=== PATIENT | male | born 1990 | race Caucasian/White ===

== ENCOUNTER 2016-09-22 21:55 | Observation (INO) | payer OTHER ==
[~2016-09-22] VITALS: Ht 180.3 cm; Wt 86.5 kg
[2016-09-22] MEDS ORDERED: SODIUM CHLORIDE 0.9% 1000ML 1,000 ML IV STA ×2 (22:10)
[2016-09-22] MEDS ORDERED: FENTANYL CITRATE INJ 50 MCG/1 ML 2 ML VIAL IV STA ×2 (22:10→22:50)
[2016-09-22] MEDS ORDERED: OPTIRAY 320 IV PRN (22:15)
[2016-09-22] MEDS ORDERED: ONDANSETRON INJ 2 MG/ML 2 ML VIAL ONE (22:19)
[2016-09-22] MEDS ORDERED: PATIENT'S ALLERGY INFO NEEDS ENTERED STA (22:28)
[2016-09-22 22:32] LABS: BASO % 0.2 %; BASO ABS # 0.02 K/uL (0-0.2); COMPLETE YES; EOS % 3.1 %; HEMATOCRIT 42.1 % (42-52); IG% 0.2 %; LYMPH % 21.6 %; LYMPH ABS # 1.92 K/uL (1.2-3.4); MEAN CELL VOLUME 88.3 fL (80-100); MEAN CORPUSCULAR HEMOGLOBIN 31.2 pg (25-34); MEAN CORPUSCULAR HGB CONC 35.4 g/dl (32-36); MEAN PLATELET VOLUME 10.6 fL (7.4-10.4); MONO % 7.9 %; PLATELET COUNT 223 K/uL (130-400); RED BLOOD COUNT 4.77 M/uL (4.7-6.1)
[2016-09-22 22:33] LABS: ISTAT CREATININE 1.1 mg/dl (0.6-1.3); ISTAT HEMOGLOBIN 14.6 g/dl (14.0-18.0); ISTAT IONIZED CALCIUM 1.2 mmol/l (1.12-1.32)
[2016-09-22 22:51] LABS: ALT/SGPT 27 U/L (12-78); BLOOD UREA NITROGEN 21 mg/dl (7-18); BUN/CREATININE RATIO 19.1 (10-20); CALCIUM 9.4 mg/dl (8.5-10.1); CARBON DIOXIDE 26 mmol/L (21-32); CHLORIDE 106 mmol/L (98-107); GLUCOSE 99 mg/dl (70-99); MAGNESIUM 2.1 mg/dl (1.8-2.4); POTASSIUM 3.9 mmol/L (3.5-5.1); SODIUM 138 mmol/L (136-145)
[2016-09-22] MEDS ORDERED: IBUP-1050 PO (22:58)
[2016-09-22] MEDS ORDERED: PANTOprazole INJ 80 MG in DEXTROSE 5% 100ML IV SCH (23:00)
--- NOTE | 2016-09-22 23:00 | DIAGNOSTIC IMAGING REPORT ---
CHEST , ABDOMEN, AND PELVIS CTA for AORTIC DISSECTION CT DOSE: 1112.21 mGy.cm HISTORY: Atypical chest pain. TECHNIQUE: Multiaxial CT images of the chest, abdomen, and pelvis were performed both before and after the intravenous administration of contrast to evaluate the aorta. Maximal intensity projection images were also obtained. A dose lowering technique was utilized adhering to the principles of ALARA. COMPARISON STUDY: None. FINDINGS: Noncontrast imaging shows no evidence for an intramural hematoma within the thoracic aorta. Mild motion artifact within the ascending thoracic aorta. However, the aorta appears to be normal in course and caliber with no evidence for dissection. The heart is normal in size. The central pulmonary arteries are patent. No pleural or pericardial effusions. No mediastinal or hilar lymphadenopathy. No fractures within the visualized osseous structures. No pneumothorax. The central airways are patent. Mild air trapping at the left lung base. No focal lung consolidations. The renal, mesenteric, and iliac arteries are widely patent. 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 The spleen, adrenal glands, pancreas, kidneys, and gallbladder are unremarkable. Mild hepatic steatosis. No retroperitoneal lymphadenopathy. Normal bladder. No bowel wall thickening or obstruction. Normal appendix. IMPRESSION: 1. No evidence for aortic dissection. 2. 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 3. No bowel wall thickening or obstruction. 4. Mild hepatic steatosis. Electronically signed by: Demarco Matt M.D. 09/22/2016 10:58 PM Dictated Date/Time: 09/22/2016 10:45 PM
[2016-09-22 23:04] LABS: ALKALINE PHOSPHATASE 60 U/L (45-117); AST/SGOT 13 U/L (15-37); THYROID STIMULATING HORMONE 0.936 uIu/ml (0.300-4.500)
[2016-09-22] MEDS ORDERED: PANTOprazole INJ 40 MG in DEXTROSE 5% 100ML IV SCH (23:15)
[2016-09-22 23:18] LABS: INR 1.1 (0.9-1.1); PROTHROMBIN TIME (PATIENT) 11.6 SECONDS (9.0-12.0)
[2016-09-22 23:22] LABS: ACETAMINOPHEN 5 ug/ml (10-30)
[2016-09-22] MEDS ORDERED: MoRPHine SULFATE 4 MG/ML 1 ML CARP\\VIAL IV STA (23:47)
--- NOTE | 2016-09-23 01:03 | EMERGENCY ROOM VISIT NOTE ---
History First contact with patient: 22:01 Chief Complaint: CARDIAC ASSESSMENT Stated Complaint: TROUBLE BREATHING, CHEST PAINS, BACK PAIN Nursing Triage Summary: Pt was out walking at farm show earlier with father, came home and started to c/o back pain. Went to dinner and afterwards c/o severe abdominal/chest pain along with pain in the back. Pt became SOB and diaphoretic. Pt in severe pain mid upper abdomen. History of Present Illness The patient is a 25 year old male who presents to the Emergency Room with complaints of severe back pain that started at 6 PM at around 8 PM developed severe chest pain with source of breath nausea and diaphoresis. Pain currently 10 out of 10. Nothing makes it better or worse. No history similar symptoms in the past. 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 Patient states he has been taking a lot more Motrin and Tylenol lately. No history GI bleed in the past. No endoscopy in the past. No black stool. Patient states occasionally he has blood in his stool but none recently. Patient states before playing baseball and he takes several tablets of Motrin and/or Tylenol in order to get to the game. He is unsure the exact amounts. Patient denies fevers, vomiting, diarrhea, black stool, bloody stool, numbness, tingling, weakness. No endoscopy or colonoscopy in the past. No family history GI bleeding. No family history of heart disease or aneurysms. Patient adamantly denies any alcohol, [id number] muscle enhancement, steroids, supplements, drug use. Review of Systems See HPI for pertinent positives & negatives. A total of 10 systems reviewed and were otherwise negative. Past Medical/Surgical History Orthopedic surgery Social History Smoking Status: Never Smoker Smokeless Tobacco Use: No Alcohol Use: none Drug Use: none Marital Status: single Occupation Status: employed Current/Historical Medications Scheduled Ibuprofen (Advil), 400 MG PO PRN UD Physical Exam Vital Signs Date Time Temp Pulse Resp B/P (MAP) Pulse Ox O2 Delivery O2 Flow Rate FiO2 09/23/16 00:19 39 09/22/16 23:16 44 18 136/87 100 09/22/16 22:18 Room Air 09/22/16 22:18 Room Air 09/22/16 22:18 Room Air 09/22/16 22:16 53 09/22/16 22:13 54 09/22/16 21:57 36.5 51 16 139/82 100 Room Air Physical Exam VITALS: Vitals are noted on the nurse's note and reviewed by myself. Vital signs s CARDIAC: No chest pain, sweating, shortness of breath, leg swelling, or irregular heart beat.. GENERAL: White male pale and diaphoretic in acute distress, well-developed well- nourished. SKIN: The skin was without rashes, erythema, edema, or bruising. There is no tenting of the skin. Capillary reflex less than 2 seconds. HEAD: Normocephalic atraumatic. EARS: External auditory canals clear, tympanic membranes pearly edmond without erythema or effusion bilaterally. EYES: Pupils equal round and reactive to light and accommodation. Conjunctivae without injection, sclerae without icterus. Extraocular movements intact. NOSE: Patent, turbinates without inflammation or discharge. MOUTH: Mucous membranes moist. Pharynx without erythema or exudate. Uvula midline. Airway patent. Tongue does not deviate. NECK: Supple without nuchal rigidity. No lymphadenopathy. No thyromegaly. Cervical spine is nontender. No JVD. HEART: Regular rate and rhythm without murmurs gallops or rubs. LUNGS: Clear to auscultation bilaterally without wheezes, rales or rhonchi. No dullness to percussion. No retractions or accessory muscle use. ABDOMEN: Positive bowel sounds x 4. Normal tympanic percussion. Soft, tender to palpation epigastric region, no CVA tenderness, without masses or organomegaly. Bull sign negative. No guarding or rebound tenderness. Rectal exam: Dark brown stool guaiac positive, him director present, no fissures or tears. MUSCULOSKELETAL: No muscle atrophy, erythema, or edema noted. NEURO: Patient was alert and oriented to person place and time. Normal sensation to light and sharp touch. No focal neurological deficits. Medical Decision & Procedures Laboratory Results 09/22/16 22:20 Red Blood Count 4.77, Mean Corpuscular Volume 88.3, Mean Corpuscular Hemoglobin 31.2, Mean Corpuscular Hemoglobin Concent 35.4, Mean Platelet Volume 10.6, Neutrophils (%) (Auto) 67.0, Lymphocytes (%) (Auto) 21.6, Monocytes (%) (Auto) 7.9, Eosinophils (%) (Auto) 3.1, Basophils (%) (Auto) 0.2, Neutrophils # (Auto) 5.96, Lymphocytes # (Auto) 1.92, Monocytes # (Auto) 0.70, Eosinophils # (Auto) 0.28, Basophils # (Auto) 0.02 09/22/16 22:20 Test 09/22/16 22:19 09/22/16 22:20 09/22/16 23:18 09/23/16 00:24 Bedside Troponin I < 0.030 ng/ml (0-0.045) White Blood Count 8.90 K/uL (4.8-10.8) Red Blood Count 4.77 M/uL (4.7-6.1) Hemoglobin 14.9 g/dL (14.0-18.0) Hematocrit 42.1 % (42-52) Mean Corpuscular Volume 88.3 fL (80-100) Mean Corpuscular Hemoglobin 31.2 pg (25-34) Mean Corpuscular Hemoglobin Concent 35.4 g/dl (32-36) Platelet Count 223 K/uL (130-400) Mean Platelet Volume 10.6 fL (7.4-10.4) Neutrophils (%) (Auto) 67.0 % Lymphocytes (%) (Auto) 21.6 % Monocytes (%) (Auto) 7.9 % Eosinophils (%) (Auto) 3.1 % Basophils (%) (Auto) 0.2 % Neutrophils # (Auto) 5.96 K/uL (1.4-6.5) Lymphocytes # (Auto) 1.92 K/uL (1.2-3.4) Monocytes # (Auto) 0.70 K/uL (0.11-0.59) Eosinophils # (Auto) 0.28 K/uL (0-0.5) Basophils # (Auto) 0.02 K/uL (0-0.2) Bedside Hemoglobin 14.6 g/dl (14.0-18.0) Bedside Hematocrit 43 % (42-52) RDW Standard Deviation 40.6 fL (36.4-46.3) RDW Coefficient of Variation 12.6 % (11.5-14.5) Immature Granulocyte % (Auto) 0.2 % Immature Granulocyte # (Auto) 0.02 K/uL (0.00-0.02) Prothrombin Time 11.6 SECONDS (9.0-12.0) Prothromb Time International Ratio 1.1 (0.9-1.1) Activated Partial Thromboplast Time 26.0 SECONDS (21.0-31.0) Partial Thromboplastin Ratio 1.0 Bedside Sodium 140 mEq/L (135-144) Bedside Potassium 3.9 mEq/L (3.3-5.0) Bedside Chloride 102 mEq/L (101-112) Bedside Total CO2 23 mEq/l (24-31) Anion Gap 20.0 mmol/L (16-25) Bedside Blood Urea Nitrogen 21 mg/dl (7-18) Bedside Creatinine 1.1 mg/dl (0.6-1.3) Est Creatinine Clear Calc Drug Dose 110.2 ml/min Estimated GFR () 108.3 Estimated GFR (Non- 93.5 BUN/Creatinine Ratio 19.1 (10-20) Bedside Glucose (other) 102 mg/dl (70-99) Calcium Level 9.4 mg/dl (8.5-10.1) Bedside Ionized Calcium (Olga Lidia) 1.20 mmol/l (1.12-1.32) Magnesium Level 2.1 mg/dl (1.8-2.4) Total Bilirubin 0.5 mg/dl (0.2-1) Direct Bilirubin 0.1 mg/dl (0-0.2) Aspartate Amino Transf (AST/SGOT) 13 U/L (15-37) Alanine Aminotransferase (ALT/SGPT) 27 U/L (12-78) Alkaline Phosphatase 60 U/L (45-117) Total Creatine Kinase 79 U/L (39-308) Creatine Kinase MB 0.8 ng/ml (0.5-3.6) Creatine Kinase MB Ratio 1.0 (0-3.0) Troponin I < 0.015 ng/ml (0-0.045) Total Protein 7.8 gm/dl (6.4-8.2) Albumin 4.4 gm/dl (3.4-5.0) Lipase 149 U/L (73-393) Thyroid Stimulating Hormone (TSH) 0.936 uIu/ml (0.300-4.500) Salicylates Level < 1.7 mg/dl (2.8-20) Acetaminophen Level 5 ug/ml (10-30) Bedside Lactic Acid Venous 2.11 mmol/L (0.90-1.70) Lactic Acid Level 1.4 mmol/L (0.4-2.0) Test 09/23/16 00:29 Medications Administered Medications (Trade) Dose Ordered Sig/Nia Route Start Time Stop Time Status Last Admin Dose Admin Sodium Chloride 1,000 ml @ 999 mls/hr Q1H1M STAT IV 09/22/16 22:10 09/22/16 23:10 DC 09/22/16 22:20 999 MLS/HR Sodium Chloride 1,000 ml @ 125 mls/hr Q8H STAT IV 09/22/16 22:10 09/23/16 06:09 09/22/16 23:17 125 MLS/HR Fentanyl Citrate (Fentanyl Inj) 100 mcg NOW STAT IV 09/22/16 22:10 09/22/16 22:12 DC 09/22/16 22:20 100 MCG Ondansetron HCl (Zofran Inj) 4 mg STK-MED ONCE .ROUTE 09/22/16 22:19 09/22/16 22:20 DC 09/22/16 22:20 4 MG Fentanyl Citrate (Fentanyl Inj) 100 mcg NOW STAT IV 09/22/16 22:50 09/22/16 22:51 DC 09/23/16 00:05 100 MCG Pantoprazole Sodium 80 mg/ Dextrose 120 ml @ 480 mls/hr 2300 IV 09/22/16 23:00 09/22/16 23:14 DC 09/22/16 23:17 480 MLS/HR Pantoprazole Sodium 40 mg/ Dextrose 100 ml @ 20 mls/hr 2315 IV 09/22/16 23:15 09/23/16 04:14 09/22/16 23:17 20 MLS/HR ED Course Prior records/ancillary studies reviewed. Triage Nursing notes reviewed. Additional history obtained from family The patient's history was concerning for chest and back pain. Differential diagnosis: Etiologies such as GI bleed, cardiac ischemia, aortic dissection, pulmonary embolism, pneumonia, pneumothorax, musculoskeletal, infections, pericarditis, myocarditis, esophageal rupture, gastrointestinal, as well as others were entertained. Physical examination: As above. ER treatment provided: Fentanyl, morphine, IV fluids, Zofran, Protonix On reassessment the patient felt better. Diagnostic interpretation by me: The electrocardiogram was ventricular rate of 51, no P waves, no acute ST-T wave changes, widened QRS, no old EKG. Impression junctional rhythm with rate of 51. Repeat EKG showed normal sinus rhythm, no acute ST-T wave changes, normal axis, rate of 64. Impression normal sinus rhythm interpreted by myself. No old EKG. Patient is in town visiting from [place] The labs revealed lactic acid 2.1. Negative troponin Imaging studies: [~ rep ct add3]] CHEST , ABDOMEN, AND PELVIS CTA for AORTIC DISSECTION CT DOSE: 1112.21 mGy.cm HISTORY: Atypical chest pain. TECHNIQUE: Multiaxial CT images of the chest, abdomen, and pelvis were performed both before and after the intravenous administration of contrast to evaluate the aorta. Maximal intensity projection images were also obtained. A dose lowering technique was utilized adhering to the principles of ALARA. COMPARISON STUDY: None. FINDINGS: Noncontrast imaging shows no evidence for an intramural hematoma within the thoracic aorta. Mild motion artifact within the ascending thoracic aorta. However, the aorta appears to be normal in course and caliber with no evidence for dissection. The heart is normal in size. The central pulmonary arteries are patent. No pleural or pericardial effusions. No mediastinal or hilar lymphadenopathy. No fractures within the visualized osseous structures. No pneumothorax. The central airways are patent. Mild air trapping at the left lung base. No focal lung consolidations. The renal, mesenteric, and iliac arteries are widely patent. 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 The spleen, adrenal glands, pancreas, kidneys, and gallbladder are unremarkable. Mild hepatic steatosis. No retroperitoneal lymphadenopathy. Normal bladder. No bowel wall thickening or obstruction. Normal appendix. IMPRESSION: 1. No evidence for aortic dissection. 2. 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 3. No bowel wall thickening or obstruction. 4. Mild hepatic steatosis. Electronically signed by: Demarco Matt M.D. 09/22/2016 10:58 PM Dictated Date/Time: 09/22/2016 10:45 PM Consultation: A consultation was placed with the GS, Dr Cano. She will evaluate the patient. She evaluated the patient and does not think this is mesenteric ischemia. She recommends medical admission. I consulted Dr. Julio, hospitalist. The case was discussed and diagnostics were reviewed. The patient was evaluated in the ER for further treatment. Exam and history seem consistent with severe epigastric chest pain that raised the back. Could be from peptic ulcer disease. Surgery does not think this is from mesenteric ischemia. Patient was started on Protonix drip. His pain improved. He was guaiac positive from Hemoccult testing. Temperature screen was ordered. No history of endoscopy or GI bleeding in the past. Patient did admit to taking a lot of NSAIDs and Tylenol well after the initial evaluation. He states he did not want his father know about this. He states he has been taking excessive amounts of this in order to continue to play baseball. Patient was counseled on the importance of avoiding taking excessive amounts of these medications as this can be harmful to his liver and kidneys. He verbalized understanding of this.By the evaluation outlined above emergent etiologies such as cardiac ischemia, aortic dissection, pulmonary embolism, pneumonia, pneumothorax, infections, pericarditis, myocarditis, gastrointestinal , as well as others were deemed relatively unlikely. The pt informed about the findings as listed above. All questions were answered and pleased with the treatment. case reviewed with my Attending. Medical Decision As above Medication Reconcilliation Current Medication List: was personally reviewed by me Blood Pressure Screening Patient's blood pressure: Normal blood pressure Impression Primary Impression: Stenosis of celiac artery Additional Impressions: Intractable epigastric abdominal pain Intractable back pain Departure Information Dispostion Being Evaluated By Hospitalist Condition FAIR Referrals No Doctor, Assigned (PCP) Patient Instructions [facility] Problem Qualifiers
[2016-09-23] MEDS ORDERED: LORAZEPAM 0.5 MG TAB PO ONE (02:39)
[2016-09-23] MEDS ORDERED: LORAZEPAM 2 MG/ML 1 ML VIAL IV PRN (02:45)
[2016-09-23] MEDS ORDERED: ONDANSETRON INJ 2 MG/ML 2 ML VIAL IV PRN (02:45)
[2016-09-23] MEDS ORDERED: PROMETHAZINE HCL INJ 12.5 MG in SODIUM CHLORIDE 0.9% 50ML 50 ML IV PRN (02:45)
[2016-09-23] MEDS ORDERED: IV FLUIDS COMPLETED PRN (02:45)
[2016-09-23] MEDS ORDERED: ACETAMINOPHEN 325 MG TAB PO PRN (02:45)
[2016-09-23] MEDS ORDERED: MoRPHine SULFATE 4 MG/ML 1 ML CARP\\VIAL IV PRN (02:45)
[2016-09-23] MEDS ORDERED: LORAZEPAM 0.5 MG TAB PO PRN ×2 (02:45)
[2016-09-23] MEDS ORDERED: NSS + 20MEQ KCL 1000ML 1,000 ML IV SCH (03:00)
[2016-09-23] MEDS ORDERED: LORAZEPAM INJ 0.5 MG in SYRINGE 0.75 ML IV PRN (03:15)
[2016-09-23] MEDS: TRAMADOL HCL 50 MG TAB PO PRN ×2 (03:25→15:42)
[2016-09-23 03:58] VITALS: BP 145/92; PULSE 45; TEMP 35.9; O2SAT 100; Ht 180.3 cm; Wt 86.5 kg
--- NOTE | 2016-09-23 06:22 | HISTORY & PHYSICAL EXAMINATION ---
DATE OF ADMISSION: 09/23/2016 PRIMARY CARE DOCTOR: Dr. Stover from [place], [place]. CHIEF COMPLAINT: Back pain, abdominal pain, chest pain. HISTORY OF PRESENT ILLNESS: History obtained from the patient and ER provider. Medical history significant for herniated disk. Patient is a resident [place], [place] who is currently in town with his father [facility]. Patient noted achy midback pain, different from usual lower back pain from "usual slipped disk issues" yesterday upon getting back to the hotel. No radiation to the lower extremities or rib cage. At some point, the patient had epigastric discomfort going to the chest. He felt short of breath. Discomfort not related to food intake. Denies overt hematemesis, coffee-ground emesis, melena, or hematochezia. No unusual weight loss. 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 Episodic hematochezia on some occasions at home. No unusual weight loss. No consultations. At the ER, stool Hemoccult was positive. IV PPI given for possible UGIB. MEDICAL HISTORY: As above. SURGERIES: Orthopedic procedure. HOME MEDICATIONS: Include ibuprofen, Tylenol. ALLERGIES: No known drug allergies. FAMILY HISTORY: Hypertension. PERSONAL SOCIAL HISTORY: Nonsmoker, no chronic intake of alcohol, college graduate. REVIEW OF SYSTEMS: As per HPI. All other ROS negative. PHYSICAL EXAMINATION: VITAL SIGNS: Blood pressure was noted to be 139/92, pulse rate 50, RR 16, temperature 36.6, and sats 90 on room air. GENERAL: Noted to be slightly uncomfortable, in no respiratory distress. SKIN: Normal color. HEENT: [place] palpebral conjunctivae. Dry mucosa. NECK: No JVD. Supple. CHEST: Clear to auscultation. HEART: Bradycardic. ABDOMEN: Epigastric tenderness. BACK: Tenderness in his midback. No SLR EXTREMITIES: No edema, tenderness. NEUROLOGIC: No gross focality. LABS: Hemoglobin was noted to be 14.9, hematocrit 42.1, white cells 8.9, and platelets 220. Sodium 130, potassium, 3.9, chloride 106, BUN 21, creatinine 1.1, glucose was noted to be 99. LFTs, lipase normal. Troponin normal. CT, dissection study showed no evidence of aortic dissection, high-grade stenosis, celiac artery post-stenotic dilatation, no obstruction, mild hepatosteatosis. ASSESSMENT: 1. Abdominal pain occult gastrointestinal bleed history of OTC NSAID intake, ddx : gastritis, peptic ulcer disease , px hemodynamically stable, 2. Incidental finding of high-grade stenosis celiac artery with mild post-stenotic dilatation on CT angiogram 3. mid back pain likely musculoskeletal 4. chronic bradycardia. PLAN: Observation GM[facility] Analgesia PPI for now Patient counseled about hazards of excessive NSAID intake. GI consult. RE abdominal pain, occult GI bleed N.p.o. for now, possible endoscopy in a.m. Vascular surgery consult RE abnormal CT angio. Further management pending workup results. DVT prophylaxis, SCDs RE GI bleed. Full code. MTDD
[2016-09-23 07:20] LABS: BASO % 0.1 %; BASO ABS # 0.01 K/uL (0-0.2); COMPLETE YES; EOS % 2.9 %; HEMATOCRIT 39.7 % (42-52); IG% 0.1 %; LYMPH % 22.3 %; LYMPH ABS # 2.57 K/uL (1.2-3.4); MEAN CELL VOLUME 89.8 fL (80-100); MEAN CORPUSCULAR HEMOGLOBIN 30.3 pg (25-34); MEAN CORPUSCULAR HGB CONC 33.8 g/dl (32-36); MEAN PLATELET VOLUME 10.5 fL (7.4-10.4); MONO % 8.8 %; NEUT % 65.8 %; PLATELET COUNT 221 K/uL (130-400); RED BLOOD COUNT 4.42 M/uL (4.7-6.1); WHITE BLOOD COUNT 11.54 K/uL (4.8-10.8)
[2016-09-23 07:45] VITALS: BP 156/82; PULSE 48; TEMP 36.9; O2SAT 97
[2016-09-23 08:00] VITALS: O2SAT 97
[2016-09-23] MEDS ORDERED: PANTOprazole INJ 40 MG in SYRINGE 0 ML IV SCH (09:00)
--- NOTE | 2016-09-23 10:38 | Gastrointestinal Consultation ---
Gastrointestinal Consultation Date of Consultation: Sep 23, 2016 Attending Physician: Pete Kearney Consulting Physician: Sudha Don Reason for Consultation: Abd pain, occult GI bleed History of Present Illness Patient is a 25 year old male residing in [place] who is here w his father for [employer]. He came to ED yesterday w c/o mid back pain, then after dinner he started having nausea w/o vomiting and mid abd pain. He was also having associated chest tightness and SOB symptoms. Cardiac enzymes normal. 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 Said diet on the road while playing baseball isn't very good or consistent, now back w family and actually eating "real meal". He had previous herniated disc on his lower back area, been taking Aleve, Ibuprofen and Tylenol on daily basis. Sometimes up to 6 tabs of Motrin and 4g Tylenol together. He denies any illicit drugs, ETOH abuse, but chews tobacco. APAP and Salicylate levels on admission was low. His labs showed normal H/H on CBC, CMP also unremarkable, in particular grossly normal BUN/Cr, LFTs, lipase. He has CTA which ruled out dissection, but + high grade celiac artery stenosis, and mild hepatic steatosis. He denies any hematemesis, + hx of BRBPR but it was about 2 months ago. His stool did tested heme positive in ED. Mom w hx of Crohn 's. He denies any bowel habit changes including diarrhea/constipation abd cramping otherwise. Past Medical/Surgical History Medical Problems: (1) Intractable back pain Status: Acute (2) Intractable epigastric abdominal pain Status: Acute (3) Stenosis of celiac artery Status: Acute Past Medical History: See above Past Surgical History: Orthopaedic procedures Family History Mom - Crohn's Social History Smoking Status: Light Tobacco Smoker Alcohol Use: none Drug Use: none Marital Status: single Housing Status: lives with family Occupation Status: employed Allergies Coded Allergies: No Known Allergies (Unverified , 09/22/16) Current Medications Home Meds and Scripts Medications Dose Route/Sig Max Daily Dose Days Date Category Advil (Ibuprofen) 200 Mg Tab 400 Mg PO PRN UD 09/22/16 Reported Review of Systems Constitutional: No fever, No chills Respiratory: No cough, No shortness of breath Abdomen: + pain, + nausea, No vomiting, No diarrhea, No constipation, No GI bleeding Musculoskeletal: + see HPI Physical Exam Date Time Temp Pulse Resp B/P (MAP) Pulse Ox O2 Delivery O2 Flow Rate FiO2 09/23/16 07:45 36.9 48 16 156/82 (106) 97 Room Air 09/23/16 03:58 35.9 45 18 145/92 100 Room Air 09/23/16 02:43 48 18 129/92 97 09/23/16 02:08 43 09/23/16 00:19 39 09/22/16 23:16 44 18 136/87 100 09/22/16 22:18 Room Air 09/22/16 22:18 Room Air 09/22/16 22:18 Room Air 09/22/16 22:16 53 09/22/16 22:13 54 09/22/16 21:57 36.5 51 16 139/82 100 Room Air General Appearance: WD/WN, no apparent distress Eyes: normal inspection, PERRL, EOMI Neck: supple, no JVD, trachea midline Respiratory/Chest: normal breath sounds, no respiratory distress, no accessory muscle use Cardiovascular: regular rate, rhythm, no gallop, no murmur Abdomen: normal bowel sounds, soft, + tenderness (RUQ) Extremities: normal inspection, no pedal edema, no calf tenderness Neurologic/Psych: alert, normal mood/affect, oriented x 3 Skin: normal color, no jaundice, no rash Laboratory Results Last 24 Hours Test 09/22/16 22:19 09/22/16 22:20 09/22/16 23:18 09/23/16 00:24 Bedside Troponin I < 0.030 ng/ml White Blood Count 8.90 K/uL Red Blood Count 4.77 M/uL Hemoglobin 14.9 g/dL Hematocrit 42.1 % Mean Corpuscular Volume 88.3 fL Mean Corpuscular Hemoglobin 31.2 pg Mean Corpuscular Hemoglobin Concent 35.4 g/dl Platelet Count 223 K/uL Mean Platelet Volume 10.6 fL Neutrophils (%) (Auto) 67.0 % Lymphocytes (%) (Auto) 21.6 % Monocytes (%) (Auto) 7.9 % Eosinophils (%) (Auto) 3.1 % Basophils (%) (Auto) 0.2 % Neutrophils # (Auto) 5.96 K/uL Lymphocytes # (Auto) 1.92 K/uL Monocytes # (Auto) 0.70 K/uL Eosinophils # (Auto) 0.28 K/uL Basophils # (Auto) 0.02 K/uL Bedside Hemoglobin 14.6 g/dl Bedside Hematocrit 43 % RDW Standard Deviation 40.6 fL RDW Coefficient of Variation 12.6 % Immature Granulocyte % (Auto) 0.2 % Immature Granulocyte # (Auto) 0.02 K/uL Prothrombin Time 11.6 SECONDS Prothromb Time International Ratio 1.1 Activated Partial Thromboplast Time 26.0 SECONDS Partial Thromboplastin Ratio 1.0 Bedside Sodium 140 mEq/L Sodium Level 138 mmol/L Bedside Potassium 3.9 mEq/L Potassium Level 3.9 mmol/L Bedside Chloride 102 mEq/L Chloride Level 106 mmol/L Carbon Dioxide Level 26 mmol/L Bedside Total CO2 23 mEq/l Anion Gap 20.0 mmol/L Bedside Blood Urea Nitrogen 21 mg/dl Blood Urea Nitrogen 21 mg/dl Creatinine 1.10 mg/dl Bedside Creatinine 1.1 mg/dl Est Creatinine Clear Calc Drug Dose 110.2 ml/min Estimated GFR () 108.3 Estimated GFR (Non- 93.5 BUN/Creatinine Ratio 19.1 Bedside Glucose (other) 102 mg/dl Random Glucose 99 mg/dl Calcium Level 9.4 mg/dl Bedside Ionized Calcium (Olga Lidia) 1.20 mmol/l Magnesium Level 2.1 mg/dl Total Bilirubin 0.5 mg/dl Direct Bilirubin 0.1 mg/dl Aspartate Amino Transf (AST/SGOT) 13 U/L Alanine Aminotransferase (ALT/SGPT) 27 U/L Alkaline Phosphatase 60 U/L Total Creatine Kinase 79 U/L Creatine Kinase MB 0.8 ng/ml Creatine Kinase MB Ratio 1.0 Troponin I < 0.015 ng/ml Total Protein 7.8 gm/dl Albumin 4.4 gm/dl Lipase 149 U/L Thyroid Stimulating Hormone (TSH) 0.936 uIu/ml Salicylates Level < 1.7 mg/dl Acetaminophen Level 5 ug/ml Lyme Disease IgG Antibody NEG Bedside Lactic Acid Venous 2.11 mmol/L Lactic Acid Level 1.4 mmol/L Test 09/23/16 06:57 White Blood Count 11.54 K/uL Red Blood Count 4.42 M/uL Hemoglobin 13.4 g/dL Hematocrit 39.7 % Mean Corpuscular Volume 89.8 fL Mean Corpuscular Hemoglobin 30.3 pg Mean Corpuscular Hemoglobin Concent 33.8 g/dl Platelet Count 221 K/uL Mean Platelet Volume 10.5 fL Neutrophils (%) (Auto) 65.8 % Lymphocytes (%) (Auto) 22.3 % Monocytes (%) (Auto) 8.8 % Eosinophils (%) (Auto) 2.9 % Basophils (%) (Auto) 0.1 % Neutrophils # (Auto) 7.61 K/uL Lymphocytes # (Auto) 2.57 K/uL Monocytes # (Auto) 1.01 K/uL Eosinophils # (Auto) 0.33 K/uL Basophils # (Auto) 0.01 K/uL RDW Standard Deviation 41.3 fL RDW Coefficient of Variation 12.6 % Immature Granulocyte % (Auto) 0.1 % Immature Granulocyte # (Auto) 0.01 K/uL Impression Patient is a 25 year old male admitted w mid back pain, nausea w/o vomiting, abd pain, CP and SOB, heme positive stools but normal H/H. Cardiac w/u negative. He had been taking large amts of NSAIDs & Tylenol for low back pain. Mom w hx of Crohn's, but he denies and s/s of bowel habit changes except a remote hx of BRBPR 2 months ago and none since then. DDx: gastritis, PUD, Hpylori. Plan - NPO for EGD today given pt and family's preference to have GI workup prior to returning to [place]. They hope to drive back home today if ok to be DC'd - Received PPI bolus and gtt yesterday, ok to continue Protonix 40mg IV BID for now. - Further recs after EGD completed.
[2016-09-23 10:40] VITALS: BP 156/82; PULSE 48; TEMP 36.9; O2SAT 97
[2016-09-23 11:21] LABS: URINE APPEARANCE CLEAR (CLEAR); URINE BILIRUBIN NEG (NEG); URINE COLOR ORANGE; URINE NITRITE NEG (NEG); UROBILINOGEN NEG (NEG); ZZUR CULT IF INDIC CLEAN CATCH NO
[2016-09-23 11:22] LABS: MANUAL MICROSCOPIC REQUIRED? NO; REVIEW REQ? NO
[2016-09-23 11:45] LABS: BENZODIAZEPINE, URINE NEG (NEG); COCAINE,URINE NEG (NEG); PHENCYCLIDINE, URINE NEG (NEG)
[2016-09-23] MEDS ORDERED: PROPOFOL IV EMULSION 10 MG/ML 20 ML VIAL IV ONE ×3 (11:45→12:10)
[2016-09-23] MEDS ORDERED: LIDOCAINE HCL 2% 2 ML VIAL (20MG/ML) ONE ×4 (11:45→12:10)
[2016-09-23] MEDS ORDERED: FENTANYL CITRATE INJ 50 MCG/1 ML 2 ML VIAL ONE (11:50)
[2016-09-23] MEDS ORDERED: SODIUM CHLORIDE 0.9% 500ML 500 ML IV ONE (12:00)
--- NOTE | 2016-09-23 12:34 | GI REPORT ---
Procedure Date: 09/23/2016 11:52 AM Procedure: Upper GI endoscopy Indications: Abdominal pain Medicines: See the Anesthesia note for documentation of the administered medications Complications: No immediate complications. Estimated Blood Loss: Estimated blood loss: none. Procedure: Pre-Anesthesia Assessment: - ASA Grade Assessment: II - A patient with mild systemic disease. After obtaining informed consent, the endoscope was passed under direct vision. Throughout the procedure, the patient's blood pressure, pulse, and oxygen saturations were monitored continuously. The scope was introduced through the mouth, and advanced to the second part of duodenum. The upper GI endoscopy was accomplished without difficulty. The patient tolerated the procedure well. Findings: The esophagus was normal. There were a few small erosions in the antrum. The stomach was otherwise normal. The pylorus was mildly patulous. The duodenal bulb was deformed and mildly dilated. There was a clean based cratered ulcer just beyond the duodenal bulb. The remainder of the duodenum was normal. Biopsies were taken with a cold forceps in the entire examined stomach for histology. Impression: Duodenal ulcer. Mild erosive gastritis. Recommendation: Presumably, ulcer is NSAID related and is the cause of pt's pain. Given post-bulbar location, would consider repeating EGD in 6-8 weeks to ensure healing. If ulcer is persistent, would check sprue serologies and fasting gastrin. Regarding cleiac artery stenosis on CT scan - would consider ultrasound with doppler, work up for median arcuate ligament syndrome if pain is persistent. Discharge patient to home with twice daily PPI therapy. Sudha Don M.D. Sudha Don MD 09/23/2016 12:33:42 PM This report has been signed electronically. Note Initiated On: 09/23/2016 11:52 AM I attest to the content of the Intraoperative Record and orders documented therein, exceptions below
--- NOTE | 2016-09-23 12:37 | Anesthesiology Progress Note ---
Anesthesia Post Op Note Date & Time Sep 23, 2016 at 12:37 Vital Signs Pain Intensity: 0 Vital Signs Past 12 Hours Date Time Temp Pulse Resp B/P (MAP) Pulse Ox O2 Delivery O2 Flow Rate FiO2 09/23/16 12:32 46 14 117/70 (86) 97 Room Air 09/23/16 12:17 71 12 111/58 (75) 99 Nasal Cannula 5 09/23/16 11:39 36.6 48 20 120/82 (95) 98 Room Air 09/23/16 10:40 36.9 48 156/82 97 Room Air 09/23/16 08:00 97 Room Air 09/23/16 07:45 36.9 48 16 156/82 (106) 97 Room Air 09/23/16 03:58 35.9 45 18 145/92 100 Room Air 09/23/16 02:43 48 18 129/92 97 09/23/16 02:08 43 Notes Mental Status: alert / awake / arousable, participated in evaluation Pt Amnestic to Procedure: Yes Nausea / Vomiting: adequately controlled Pain: adequately controlled Airway Patency, RR, SpO2: stable & adequate BP & HR: stable & adequate Hydration State: stable & adequate Anesthetic Complications: no major complications apparent
[2016-09-23 13:41] LABS: HEMATOCRIT 41.1 % (42-52)
[2016-09-23 15:19] VITALS: BP 116/74; PULSE 43; TEMP 36.7; O2SAT 97
[2016-09-23] MEDS ORDERED: ULT50X PO (15:50)
[2016-09-23] MEDS ORDERED: PANT1TAB48 PO (15:50)
--- NOTE | 2016-09-23 16:02 | Discharge Instructions ---
Discharge Instructions Date of Service Sep 23, 2016. Admission Reason for Admission: Abdominal Pain Discharge Discharge Diagnosis / Problem: Abdominal pain, Duodenal Ulcer, Celiac Artery stenosis Discharge Goals Goal(s): Decrease discomfort, Improve function, Improve disease control Activity Recommendations Activity Limitations: resume your previous activity . Instructions / Follow-Up Instructions / Follow-Up Schedule follow up appointment with your primary care provider in 1 week avoid Alcohol and NSAIDs (Motrin, Aleve, Ibuprofen, Naproxen) due to Duodenal ulcer on Endoscopy Continue Pantoprazole 40mg twice a day ( OK with omeprazole 40mg whichever your insurance covers) Follow your with Gastro to repeat Endoscopy between 6 to 8 weeks Follow up with vascular surgery for the high grade celiac artery stenosis Script given for tramadol (please do not drive or operate any machine after taking tramadol) Current Hospital Diet Patient's current hospital diet: Discharge Diet Recommended Diet: Regular Diet Procedures Procedures Performed: EDG Pending Studies Studies pending at discharge: no Medical Emergencies . Who to Call and When: Medical Emergencies: If at any time you feel your situation is an emergency, please call 911 immediately. . Non-Emergent Contact Non-Emergency issues call your: Primary Care Provider Call Non-Emergent contact if: your pain is not controlled, your pain is worsening, you have any medication questions . . "Provider Documentation" section prepared by Pete Kearney. . VTE Core Measure Inpt VTE Proph given/why not?: SCD's, Contraindicated [place] Drug Monitoring Program Search Results: no issues identified (cannot find him on the database)
[2016-09-23 16:11] VITALS: BP 116/74; PULSE 43; TEMP 36.7; O2SAT 97
[2016-09-23] MEDS ORDERED: TRAMADOL HCL 50 MG HOME PACK PO ONE (16:15)
--- NOTE | 2016-09-23 16:31 | Surgery Consultation ---
Consultation Date of Service Sep 23, 2016. (Melissa Edwards PA-C) Chief Complaint abd pain, celiac art stenosis on CT (Melissa Edwards PA-C) History of Present Illness The patient is a 25 year old male admitted with sudden onset epigastric abd pain , seen in consultation today for celiac art stenosis noted on CTA. Pt states no hx of similar pain, but recently had change in eating, with opportunity for home cooked food after having been in [place] for past 3 months. Denies sudden weight loss or chronic post prandial pain. Had EGD today which demonstrated gastric ulcer. Denies MOORE, fever, chills, chest pain, vomiting, diarrhea, claudication, rest pain, other complaints. (Melissa Edwards PA-C) Vitals Vital Signs Past 12 Hours Date Time Temp Pulse Resp B/P (MAP) Pulse Ox O2 Delivery O2 Flow Rate FiO2 09/23/16 16:11 36.7 43 16 97 Room Air 09/23/16 15:19 36.7 43 16 116/74 (88) 97 Room Air 09/23/16 13:12 50 14 136/78 (97) 99 Room Air 09/23/16 12:50 51 14 132/80 (97) 97 Room Air 09/23/16 12:32 46 14 117/70 (86) 97 Room Air 09/23/16 12:17 71 12 111/58 (75) 99 Nasal Cannula 5 09/23/16 11:39 36.6 48 20 120/82 (95) 98 Room Air 09/23/16 10:40 36.9 48 156/82 97 Room Air 09/23/16 08:00 97 Room Air 09/23/16 07:45 36.9 48 16 156/82 (106) 97 Room Air (Melissa Edwards PA-C) Allergies Coded Allergies: No Known Allergies (Unverified , 09/22/16) Home Medications Scheduled Pantoprazole (Protonix), 40 MG PO BID Scheduled PRN Tramadol HCl (Tramadol HCl), 50 MG PO Q12 PRN for Pain Problem List Medical Problems: (1) Abdominal pain (Melissa Edwards PA-C) Surgical / Medical History Hx Cardiac Surgery: No Hx Abdominal Surgery: No Hx Cancer Surgery: No Hx Thoracic Surgery: No Hx Orthopedic: Yes (Labrum and UCL on R arm) Hx Urinary Tract Surgery: No HX Other Surgery: No (Melissa Edwards PA-C) Family History Mother with crohns (Melissa Edwards PA-C) Social History Smoking Status: Never Smoker Hx Tobacco Use In Past Year?: Yes (chew) Hx Alcohol Use - Type & Amnt: Yes (Occasionally, beer) Hx Substance Use -Type & Amnt: No (Melissa Edwards PA-C) Physical Exam Constitutional: General Apperance: heathly-appearing, well-nourished, well-developed Level of Distress: NAD Ambulation: ambulating normally Psychiatric: Mental Status: active & alert, normal mood, normal affect Orientation: oriented except where noted, to time, to place, to person Memory: recent memory normal, remote memory normal Head: normocephalic, atraumatic Eyes: EOM: EOMI ENMT: normal ENT inspection, hearing grossly normal Neck: supple, trachea midline Lungs: Respiratory effort: no dyspnea Auscultation: no wheezing, no rales/crackles, no rhonchi Cardiovascular: Apical Impulse: not displaced Heart Auscultation: RRR, no rubs, no gallops Peripheral Pulses: Pulses: full and equal, in all extremities except if noted Bruits: none appreciated Carotid Pulse: normal on the left, normal on the right Brachial Pulses: normal on the left, normal on the right Radial Pulse: normal on the left, normal on the right Femoral Pulse: normal on the left, normal on the right Posterior Tibialis Pulse: normal on the left, normal on the right Dorsalis Pedis Pulse: normal on the left, normal on the right Abdomen: Bowel Sounds: normal Inspection & Palpation: soft, non-distended, pertinent finding (mild epigastric tenderness) Musculoskeletal: normal strength (5/5 throughout), normal tone Extremities: Upper Right: no cyanosis, no edema, no varicosities Upper Left: no cyanosis, no edema, no varicosities Lower Right: no cyanosis, no edema, no varicosities Lower Left: no cyanosis, no edema, no varicosities Neurologic: Cranial Nerves: grossly intact Sensation: grossly intact (Melissa Edwards PA-C) Assessment and Plan ASSESSMENT and PLAN: celiac art stenosis on CT, asymptomatic Pt without sx consistent with mesenteric stenosis or medial arcuate ligament syndrome. No indications for vascular surgical intervention at this time. Ok for d/c from vascular standpoint. Please call if needed. (Melissa Edwards, PA-C) Patient was seen, examined, and chart reviewed. Agree with exam and treatment plan of the Vascular PA. Thank you very much for letting me participate in the care of this patient. (Mario Fraire M.D.)
--- NOTE | 2016-09-23 17:18 | Progress Note ---
Medicine Progress Note Date & Time of Visit: Sep 23, 2016 at 15:42. Subjective Pt was seen and examined lying in bed with no distress he is in a kapadia to leave the hospital because family is driving back to [place] denies any chest pain, palpitation, dizziness and SOB Objective Last 8 Hrs Date Time Temp Pulse Resp B/P (MAP) Pulse Ox O2 Delivery O2 Flow Rate FiO2 09/23/16 15:19 36.7 43 16 116/74 (88) 97 Room Air 09/23/16 13:12 50 14 136/78 (97) 99 Room Air 09/23/16 12:50 51 14 132/80 (97) 97 Room Air 09/23/16 12:32 46 14 117/70 (86) 97 Room Air 09/23/16 12:17 71 12 111/58 (75) 99 Nasal Cannula 5 09/23/16 11:39 36.6 48 20 120/82 (95) 98 Room Air 09/23/16 10:40 36.9 48 156/82 97 Room Air 09/23/16 08:00 97 Room Air 09/23/16 07:45 36.9 48 16 156/82 (106) 97 Room Air Physical Exam: General- No acute distress Head- atraumatic Eyes- PERRL, EOMI ENT- oropharynx clear Neck- supple, no JVD Lungs- clear to auscultation Heart- regular rhythm; no murmur Abdomen- normal bowel sounds, soft Extremities- no pretibial edema, no calf tenderness Neuro- alert, oriented x 3; PERRL, EOMI; no facial palsy Skin- warm & dry Laboratory Results: Last 24 Hours Test 09/22/16 22:19 09/22/16 22:20 09/22/16 23:18 09/23/16 00:24 Bedside Troponin I < 0.030 ng/ml White Blood Count 8.90 K/uL Red Blood Count 4.77 M/uL Hemoglobin 14.9 g/dL Hematocrit 42.1 % Mean Corpuscular Volume 88.3 fL Mean Corpuscular Hemoglobin 31.2 pg Mean Corpuscular Hemoglobin Concent 35.4 g/dl Platelet Count 223 K/uL Mean Platelet Volume 10.6 fL Neutrophils (%) (Auto) 67.0 % Lymphocytes (%) (Auto) 21.6 % Monocytes (%) (Auto) 7.9 % Eosinophils (%) (Auto) 3.1 % Basophils (%) (Auto) 0.2 % Neutrophils # (Auto) 5.96 K/uL Lymphocytes # (Auto) 1.92 K/uL Monocytes # (Auto) 0.70 K/uL Eosinophils # (Auto) 0.28 K/uL Basophils # (Auto) 0.02 K/uL Bedside Hemoglobin 14.6 g/dl Bedside Hematocrit 43 % RDW Standard Deviation 40.6 fL RDW Coefficient of Variation 12.6 % Immature Granulocyte % (Auto) 0.2 % Immature Granulocyte # (Auto) 0.02 K/uL Prothrombin Time 11.6 SECONDS Prothromb Time International Ratio 1.1 Activated Partial Thromboplast Time 26.0 SECONDS Partial Thromboplastin Ratio 1.0 Bedside Sodium 140 mEq/L Sodium Level 138 mmol/L Bedside Potassium 3.9 mEq/L Potassium Level 3.9 mmol/L Bedside Chloride 102 mEq/L Chloride Level 106 mmol/L Carbon Dioxide Level 26 mmol/L Bedside Total CO2 23 mEq/l Anion Gap 20.0 mmol/L Bedside Blood Urea Nitrogen 21 mg/dl Blood Urea Nitrogen 21 mg/dl Creatinine 1.10 mg/dl Bedside Creatinine 1.1 mg/dl Est Creatinine Clear Calc Drug Dose 110.2 ml/min Estimated GFR () 108.3 Estimated GFR (Non- 93.5 BUN/Creatinine Ratio 19.1 Bedside Glucose (other) 102 mg/dl Random Glucose 99 mg/dl Calcium Level 9.4 mg/dl Bedside Ionized Calcium (Olga Lidia) 1.20 mmol/l Magnesium Level 2.1 mg/dl Total Bilirubin 0.5 mg/dl Direct Bilirubin 0.1 mg/dl Aspartate Amino Transf (AST/SGOT) 13 U/L Alanine Aminotransferase (ALT/SGPT) 27 U/L Alkaline Phosphatase 60 U/L Total Creatine Kinase 79 U/L Creatine Kinase MB 0.8 ng/ml Creatine Kinase MB Ratio 1.0 Troponin I < 0.015 ng/ml Total Protein 7.8 gm/dl Albumin 4.4 gm/dl Lipase 149 U/L Thyroid Stimulating Hormone (TSH) 0.936 uIu/ml Salicylates Level < 1.7 mg/dl Acetaminophen Level 5 ug/ml Lyme Disease IgG Antibody NEG Bedside Lactic Acid Venous 2.11 mmol/L Lactic Acid Level 1.4 mmol/L Test 09/23/16 06:57 09/23/16 11:05 09/23/16 13:21 White Blood Count 11.54 K/uL Red Blood Count 4.42 M/uL Hemoglobin 13.4 g/dL 13.9 g/dL Hematocrit 39.7 % 41.1 % Mean Corpuscular Volume 89.8 fL Mean Corpuscular Hemoglobin 30.3 pg Mean Corpuscular Hemoglobin Concent 33.8 g/dl Platelet Count 221 K/uL Mean Platelet Volume 10.5 fL Neutrophils (%) (Auto) 65.8 % Lymphocytes (%) (Auto) 22.3 % Monocytes (%) (Auto) 8.8 % Eosinophils (%) (Auto) 2.9 % Basophils (%) (Auto) 0.1 % Neutrophils # (Auto) 7.61 K/uL Lymphocytes # (Auto) 2.57 K/uL Monocytes # (Auto) 1.01 K/uL Eosinophils # (Auto) 0.33 K/uL Basophils # (Auto) 0.01 K/uL RDW Standard Deviation 41.3 fL RDW Coefficient of Variation 12.6 % Immature Granulocyte % (Auto) 0.1 % Immature Granulocyte # (Auto) 0.01 K/uL Urine Color ORANGE Urine Appearance CLEAR Urine pH 5.0 Urine Specific [place] 1.030 Urine Protein NEG Urine Glucose (UA) NEG Urine Ketones NEG Urine Occult Blood NEG Urine Nitrite NEG Urine Bilirubin NEG Urine Urobilinogen NEG Urine Leukocyte Esterase NEG Urine Opiates Screen POS Urine Methadone, Qualitative NEG Urine Barbiturates NEG Urine Phencyclidine (PCP) Level NEG Ur Amphetamine/Methamphetamine NEG MDMA (Ecstasy) Screen NEG Urine Benzodiazepines Screen NEG Urine Cocaine Metabolite NEG Urine Marijuana (THC) POS Assessment & Plan Abdominal Pain Possible related to duodenal ulcer due to NSAIDs EGD done today showed Duodenal ulcer. Mild erosive gastritis Gastro on board recommended PPI BID, repeat EGD in 6-8 weeks Advised pt to avoid NSAIDs and alcohol Celiac Artery Stenosis Incidental finding on CT Vascular consulted recommended no surgical intervention Monitor as an outpatient Back Pain Tramadol given DVT Px SCDs CODE STATUS FULL CODE Consultants: Gastro Vascular surgery Current Inpatient Medications: Current Inpatient Medications Medications (Trade) Dose Ordered Sig/Nia Route Start Time Stop Time Status Last Admin Dose Admin Ioversol (Optiray 320) 111 ml UD PRN IV 09/22/16 22:15 09/26/16 22:14 Miscellaneous (Iv Fluids Completed) 1 ea PRN PRN N/A 09/23/16 02:45 09/23/17 02:44 Potassium Chloride/Sodium Chloride 1,000 ml @ 60 mls/hr [id number] IV 09/23/16 03:00 10/23/16 02:59 09/23/16 03:24 60 MLS/HR Ondansetron HCl (Zofran Inj) 4 mg Q6H PRN IV 09/23/16 02:45 10/23/16 02:44 Tramadol HCl (Ultram Tab) not relieved ... Q6H PRN PO 09/23/16 02:45 10/23/16 02:44 09/23/16 03:25 50 MG Lorazepam (Ativan Inj) 0.5 mg Q4H PRN IV 09/23/16 02:45 10/23/16 02:44 Lorazepam (Ativan Tab) 0.5 mg HS PRN PO 09/23/16 02:45 10/23/16 02:44 Promethazine HCl 12.5 mg/Sodium Chloride 50.5 ml @ 204 mls/hr Q6H PRN IV 09/23/16 02:45 10/23/16 02:44 Pantoprazole Sodium 40 mg/ Syringe 10 ml @ 5 mls/min Q12H IV 09/23/16 09:00 10/23/16 08:59 09/23/16 13:55 5 MLS/MIN Acetaminophen (Tylenol Tab) 650 mg Q6H PRN PO 09/23/16 02:45 10/23/16 02:44 Morphine Sulfate (MoRPHine SULFATE INJ) 4 mg Q4H PRN IV 09/23/16 02:45 10/07/16 02:44 Lorazepam 0.5 mg/ Syringe 1 ml @ 1 mls/min Q4H PRN IV 09/23/16 03:15 10/23/16 03:14 Sodium Chloride 500 ml @ 15 mls/hr Q24H ONCE IV 09/23/16 12:00 09/24/16 11:59
[2016-09-27 07:38] LABS: COD UR NEGATIVE NG/ML (CUTOFF=50); HYDROCOD UR NEGATIVE NG/ML (CUTOFF=50); HYDROMOR UR NEGATIVE NG/ML (CUTOFF=50); MORPHINE UR 1980 NG/ML (CUTOFF=50); NORHYDROCODONE CONF UR NEGATIVE NG/ML (CUTOFF=50); OXYMORPH UR NEGATIVE NG/ML (CUTOFF=50)
--- NOTE | 2016-10-01 03:34 | Discharge Summary ---
Discharge Summary Date of Service Oct 01, 2016. Discharge Summary Admission Date: Sep 23, 2016 at 02:22 Discharge Date: Sep 23, 2016 Discharge Disposition: Home Principal Diagnosis: Abdominal pain Secondary Diagnoses/Problems: Duodenal Ulcer Celiac Artery stenosis Procedures: CHEST , ABDOMEN, AND PELVIS CTA for AORTIC DISSECTION CT DOSE: 1112.21 mGy.cm HISTORY: Atypical chest pain. TECHNIQUE: Multiaxial CT images of the chest, abdomen, and pelvis were performed both before and after the intravenous administration of contrast to evaluate the aorta. Maximal intensity projection images were also obtained. A dose lowering technique was utilized adhering to the principles of ALARA. COMPARISON STUDY: None. FINDINGS: Noncontrast imaging shows no evidence for an intramural hematoma within the thoracic aorta. Mild motion artifact within the ascending thoracic aorta. However, the aorta appears to be normal in course and caliber with no evidence for dissection. The heart is normal in size. The central pulmonary arteries are patent. No pleural or pericardial effusions. No mediastinal or hilar lymphadenopathy. No fractures within the visualized osseous structures. No pneumothorax. The central airways are patent. Mild air trapping at the left lung base. No focal lung consolidations. The renal, mesenteric, and iliac arteries are widely patent. 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 The spleen, adrenal glands, pancreas, kidneys, and gallbladder are unremarkable. Mild hepatic steatosis. No retroperitoneal lymphadenopathy. Normal bladder. No bowel wall thickening or obstruction. Normal appendix. IMPRESSION: 1. No evidence for aortic dissection. 2. 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 3. No bowel wall thickening or obstruction. 4. Mild hepatic steatosis. Electronically signed by: Demarco Matt M.D. 09/22/2016 10:58 PM Dictated Date/Time: 09/22/2016 10:45 PM CHEST , ABDOMEN, AND PELVIS CTA for AORTIC DISSECTION CT DOSE: 1112.21 mGy.cm HISTORY: Atypical chest pain. TECHNIQUE: Multiaxial CT images of the chest, abdomen, and pelvis were performed both before and after the intravenous administration of contrast to evaluate the aorta. Maximal intensity projection images were also obtained. A dose lowering technique was utilized adhering to the principles of ALARA. COMPARISON STUDY: None. FINDINGS: Noncontrast imaging shows no evidence for an intramural hematoma within the thoracic aorta. Mild motion artifact within the ascending thoracic aorta. However, the aorta appears to be normal in course and caliber with no evidence for dissection. The heart is normal in size. The central pulmonary arteries are patent. No pleural or pericardial effusions. No mediastinal or hilar lymphadenopathy. No fractures within the visualized osseous structures. No pneumothorax. The central airways are patent. Mild air trapping at the left lung base. No focal lung consolidations. The renal, mesenteric, and iliac arteries are widely patent. 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 The spleen, adrenal glands, pancreas, kidneys, and gallbladder are unremarkable. Mild hepatic steatosis. No retroperitoneal lymphadenopathy. Normal bladder. No bowel wall thickening or obstruction. Normal appendix. IMPRESSION: 1. No evidence for aortic dissection. 2. 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 3. No bowel wall thickening or obstruction. 4. Mild hepatic steatosis. Electronically signed by: Demarco Matt M.D. 09/22/2016 10:58 PM Dictated Date/Time: 09/22/2016 10:45 PM Consultations: Gastro Vascular surgery Medication Reconciliation New Medications: Pantoprazole (Protonix) 40 Mg Tab 40 MG PO BID for 30 Days, #60 TAB Tramadol HCl (Tramadol HCl) 50 Mg Tab 50 MG PO Q12 PRN for Pain for 5 Days, #10 TAB Discontinued Medications: Ibuprofen (Advil) 200 Mg Tab 400 MG PO PRN UD, TAB Admission Information HPI (per Admitting provider): CHIEF COMPLAINT: Back pain, abdominal pain, chest pain. HISTORY OF PRESENT ILLNESS: History obtained from the patient and ER provider. Medical history significant for herniated disk. Patient is a resident [place], [place] who is currently in town with his father for the local [employer] yesterday. Patient noted achy midback pain, different from usual lower back pain from "usual slipped disk issues" yesterday upon getting back to the hotel. No radiation to the lower extremities or rib cage. At some point, the patient had epigastric discomfort going to the chest. He felt short of breath. Discomfort not related to food intake. Denies overt hematemesis, coffee-ground emesis, melena, or hematochezia. No unusual weight loss. 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 Episodic hematochezia on some occasions at home. No unusual weight loss. No consultations. At the ER, stool Hemoccult was positive. IV PPI given for possible UGIB. Physical Exam (per Admitting): VITAL SIGNS: Blood pressure was noted to be 139/92, pulse rate 50, RR 16, temperature 36.6, and sats 90 on room air. GENERAL: Noted to be slightly uncomfortable, in no respiratory distress. SKIN: Normal color. HEENT: [place] palpebral conjunctivae. Dry mucosa. NECK: No JVD. Supple. CHEST: Clear to auscultation. HEART: Bradycardic. ABDOMEN: Epigastric tenderness. BACK: Tenderness in his midback. No SLR EXTREMITIES: No edema, tenderness. NEUROLOGIC: No gross focality. Hospital Course Abdominal Pain Possible related to duodenal ulcer due to NSAIDs EGD done today showed Duodenal ulcer. Mild erosive gastritis Gastro on board recommended PPI BID, repeat EGD in 6-8 weeks Advised pt to avoid NSAIDs and alcohol Celiac Artery Stenosis Incidental finding on CT Vascular consulted recommended no surgical intervention Monitor as an outpatient Back Pain Tramadol given DVT Px SCDs CODE STATUS FULL CODE Total time spent on discharge = 35 minutes This includes examination of the patient, discharge planning, medication reconciliation, and communication with other providers. Discharge Instructions Discharge Instructions Date of Service Sep 23, 2016. Admission Reason for Admission: Abdominal Pain Discharge Discharge Diagnosis / Problem: Abdominal pain, Duodenal Ulcer, Celiac Artery stenosis Discharge Goals Goal(s): Decrease discomfort, Improve function, Improve disease control Activity Recommendations Activity Limitations: resume your previous activity . Instructions / Follow-Up Instructions / Follow-Up Schedule follow up appointment with your primary care provider in 1 week avoid Alcohol and NSAIDs (Motrin, Aleve, Ibuprofen, Naproxen) due to Duodenal ulcer on Endoscopy Continue Pantoprazole 40mg twice a day ( OK with omeprazole 40mg whichever your insurance covers) Follow your with Gastro to repeat Endoscopy between 6 to 8 weeks Follow up with vascular surgery for the high grade celiac artery stenosis Script given for tramadol (please do not drive or operate any machine after taking tramadol) Current Hospital Diet Patient's current hospital diet: Discharge Diet Recommended Diet: Regular Diet Procedures Procedures Performed: EDG Pending Studies Studies pending at discharge: no Medical Emergencies . Who to Call and When: Medical Emergencies: If at any time you feel your situation is an emergency, please call 911 immediately. . Non-Emergent Contact Non-Emergency issues call your: Primary Care Provider Call Non-Emergent contact if: your pain is not controlled, your pain is worsening, you have any medication questions . . "Provider Documentation" section prepared by Pete Kearney. . VTE Core Measure Inpt VTE Proph given/why not?: SCD's, Contraindicated [place] Drug Monitoring Program Search Results: no issues identified (cannot find him on the database)
== END 2016-09-23 17:02 | disposition home or self-care (01) ==
LOC: C.EDB 21:57 → C.MED 09-23 02:22 → ENRESERV 09-23 02:31 → C.MED 09-23 04:52
PROVIDERS: ADMIT Internal Medicine; ATTEND Internal Medicine
DX: R07.89 Other chest pain (principal); I77.4 Celiac artery compression syndrome; R00.1 Bradycardia, unspecified; Z79.899 Other long term (current) drug therapy; K76.0 Fatty (change of) liver, not elsewhere classified; M54.9 Dorsalgia, unspecified; Z83.79 Family history of other diseases of the digestive system; F17.210 Nicotine dependence, cigarettes, uncomplicated; K29.70 Gastritis, unspecified, without bleeding; K26.9 Duodenal ulcer, unspecified as acute or chronic, without hemorrhage or perforation